=== PATIENT | female | born 1970 | race Caucasian/White ===

== ENCOUNTER 2021-01-25 10:34 | Outpatient (CLI) | payer OTHER, SELFPAY ==
--- NOTE | ~2021-01-25 | US_ITS ---
EXAMINATION: US soft tissue head and neck DATE: 01/25/2021 11:11 INDICATION: Right supraclavicular swelling TECHNIQUE: Multiple grayscale and Doppler ultrasound images were obtained of the right supraclavicula r region of concern and the contralateral left supraclavicular region for comparison. COMPARISON: None FINDINGS/IMPRESSION: No pathologically enlarged lymphadenopathy or other abnormal masses or fluid collections identified a t the right supraclavicular region of concern. Reviewed, dictated and finalized at location A.
== END 2021-01-25 10:35 | disposition home or self-care (01) ==
PROVIDERS: PCP Internal Medicine; Visit Provider Nurse Practitioner
DX: R22.2 Localized swelling, mass and lump, trunk (principal)
CPT/HCPCS: 76536

== ENCOUNTER 2021-03-26 11:43 | Emergency (ER) | payer OTHER, SELFPAY ==
[2021-03-26 12:50] VITALS: BP 131/58; PULSE 66; RESP 16; TEMP 36.3; O2SAT 100
[2021-03-26] MEDS: TETANUS,DIPHTHERIA,AC PERTUSSIS ADULT (0.5 ML) BOOSTRIX IM (13:18)
--- NOTE | 2021-03-26 13:43 | ED.WOUNDLAC ---
HPI - Wound/Laceration General Chief Complaint: Wound/Laceration Stated Complaint: laceration Time Seen by Provider: 03/26/21 13:35 Source: patient Mode of arrival: ambulatory Limitations: no limitations History of Present Illness HPI narrative: Ernestina Fischer is a 50 yo female with high blood pressure and depression comes to [facility] with a small laceration to the left thumb palmar side, distal joint Related Data Home Medications Medication Instructions Recorded Confirmed citalopram 40 mg PO DAILY 03/26/21 03/26/21 spironolactone 100 mg PO DAILY 03/26/21 03/26/21 Allergies Allergy/AdvReac Type Severity Reaction Status Date / Time No Known Allergies Allergy Unknown Verified 03/26/21 12:40 Review of Systems Review of Systems: Narrative: CONSTITUTIONAL: Denies fever, chills, sweats. EYES: Denies visual changes, redness, discharge. ENT: Denies rhinorrhea, congestion, sore throat, otalgia. CARDIOVASCULAR: Denies chest pain, palpitations, edema. RESPIRATORY: Denies dyspnea, wheezing, cough GASTROINTESTINAL: Denies abdominal pain, nausea, vomiting, diarrhea. GENITOURINARY: Denies dysuria, hematuria, abnormal discharge SKIN: Denies rash or itching. Severe laceration to left thumb palmar side at the distal joint NEUROLOGIC: Denies numbness, or focal weakness. PSYCHIATRIC: Denies anxiety or depression. PMFSH Past Medical History Medical History Depression Hypertension Social History Social History (Updated 03/26/21 @ 14:19 by Lucía Oakley CNP) Smoking status: Never smoker Alcohol intake: current Comments At time of signature, I agree with nursing past medical, surgical, social and family history. There is no relevant family history pertinent to the presenting complaint. Exam Narrative: Exam Narrative: GENERAL: This is a well-nourished, well-developed patient, in mild distress. HEAD: normocephalic, atraumatic. EYES: Sclera clear/white. Vision is grossly intact. EARS: External ears normal, a Hearing grossly intact. NOSE: External nose normal without nasal discharge, nares without redness, no rhinorrhea. THROAT: Mucous membranes moist, NECK: Neck supple CARDIOVASCULAR: Regular rate and rhythm without murmurs, gallops, or rubs. RESPIRATORY: Clear to auscultation. Breath sounds equal bilaterally. No wheezes, rales, or rhonchi. GASTROINTESTINAL: Abdomen soft, SKIN: warm, intact with centimeter laceration to the left thumb palmar side at the distal joint, controlled bleeding NEURO: awake, alert, and oriented to person, place and time. There were no obvious focal neurologic abnormalities. Steady gait EXTREMITIES: Normal range of motion. BACK: Nontender without deformity Course Course Emergency Course: 1 cm lack to left thumb on the palmar side 2 sutures placed Lack care explained tetanus shot given Vital Signs Vital signs: Vital Signs Temperature 97.4 F L 03/26/21 12:50 Pulse Rate 66 03/26/21 12:50 Respiratory Rate 16 03/26/21 12:50 Blood Pressure 131/58 L 03/26/21 12:50 Pulse Oximetry 100 03/26/21 12:50 Temperature 97.4 F L 03/26/21 12:50 Pulse Rate 66 03/26/21 12:50 Respiratory Rate 16 03/26/21 12:50 Blood Pressure 131/58 L 03/26/21 12:50 Pulse Oximetry 100 03/26/21 12:50 Procedures Laceration Laceration 1: Date: 03/26/21 Time: 13:47 Site: hand Side (If applicable): left Size (cm): 1 Description: linear and involves lid margin Depth: simple, single layer Local Anesthetic: lidocaine 1% Amount of anesthesia used (mL): 1 Pre-repair: irrigated ====== Skin Level ====== Skin layer closed with: vicryl Size (cm): 4-0 Number of sutures: 3 Technique: simple, interrupted ====== Subcutaneous Layer ====== ====== Muscle Layer ====== ====== Tendon Layer ====== MDM - Wound/Laceration Diffe
== END 2021-03-26 14:18 | disposition home or self-care (01) ==
PROVIDERS: Emergency Provider Nurse Practitioner; PCP Internal Medicine
DX: S61.012A Laceration without foreign body of left thumb without damage to nail, initial encounter (principal); X58.XXXA Exposure to other specified factors, initial encounter; F32.9 Major depressive disorder, single episode, unspecified; I10 Essential (primary) hypertension
CPT/HCPCS: 12001; 90471; 90715; 96372; 99212; G0463

== ENCOUNTER → 2022-01-24 09:39 | Outpatient (CLI) | payer OTHER, SELFPAY ==
--- NOTE | ~2022-01-24 | MR_ITS ---
EXAMINATION: MR ankle RT wo con DATE: 01/24/2022 10:16 INDICATION: Bone cyst of the right foot. Lateral right ankle pain. TECHNIQUE: Magnetic resonance imaging (MRI) of the right ankle was performed without intravenous cont rast. Sequences included sagittal, coronal, and axial proton-density weighted fast spin echo without and with fat saturation. COMPARISON: None. FINDINGS: Medial ankle ligaments: Deep and superficial deltoid ligaments as well as the spring ligament are normal. Lateral ankle ligaments: The anterior and posterior inferior tibiofibular ligaments are normal. The anterior talofibular, calc aneofibular and posterior talofibular ligaments are normal. Tendons: Achilles tendon is normal. Small amount of fluid signal extending along the peroneal tendon sheath co nsistent with mild tenosynovitis. The peroneus longus tendon is normal. Longitudinal split tear of th e peroneus brevis tendon at the level of the retromalleolar groove. The tibialis anterior and extenso r hallucis longus and extensor digitorum longus tendons are normal. The tibialis posterior, flexor di gitorum longus and flexor hallucis longus tendons are normal. Plantar fascia: Plantar aponeurosis is normal. Bones/other: Bone alignment is normal. Normal marrow signal throughout with no reactive edema, fracture or patholo gic marrow replacing process. Joint spaces are normal. Fluid: Physiologic amount fluid in the joint spaces. IMPRESSION: 1. Mild peroneal tenosynovitis with longitudinal split tear of the peroneus brevis tendon. Reviewed, dictated and finalized at location B. IMPRESSION: 1. Mild peroneal tenosynovitis with longitudinal split tear of the peroneus tonya vis tendon.
== END ==
PROVIDERS: PCP Internal Medicine; Visit Provider Podiatrist Foot & Ankle Surgery
DX: S86.311A Strain of muscle(s) and tendon(s) of peroneal muscle group at lower leg level, right leg, initial encounter (principal); M85.671 Other cyst of bone, right ankle and foot
CPT/HCPCS: 73721

== ENCOUNTER → 2022-01-24 09:42 | Outpatient (CLI) | payer OTHER, SELFPAY ==
--- NOTE | ~2022-01-24 | XR_ITS ---
EXAMINATION: XR lumbar spine 2-3V DATE: 01/24/2022 10:27 INDICATION: Low back pain. TECHNIQUE: 3 views of lumbar spine were obtained. COMPARISON: CT abdomen and pelvis 03/14/2009 FINDINGS: Bone alignment is normal. Vertebral body heights are normal. There is moderately decreased disc height at L5-S1 with endplate remodeling. There are endplate osteophytes at multiple levels. The re is mild facet joint osteoarthritis in lower lumbar spine. There is an intrauterine device in expec venita position. IMPRESSION: 1. Moderate degenerative disc disease at L5-S1. Reviewed, dictated and finalized at location A.
== END ==
PROVIDERS: PCP Internal Medicine; Visit Provider Internal Medicine
DX: M47.817 Spondylosis without myelopathy or radiculopathy, lumbosacral region (principal)
CPT/HCPCS: 72100

== ENCOUNTER 2024-04-27 15:16 | Outpatient (CLI) | payer BC, SELFPAY ==
--- NOTE | ~2024-04-27 | XR_ITS ---
XR hip LT min 2V 04/27/2024 15:45 Indication: Left hip pain Procedure: 2 views left hip Comparison: No prior studies for comparison. Findings: Moderate osteoarthritis of the left hip. No fracture or traumatic malalignment. There is an IUD present. Surrounding osseous structures and soft tissues are unremarkable. Impression: 1: Moderate osteoarthritis of the left hip. Reviewed, dictated and finalized at location B. Impression: 1: Moderate osteoarthritis of the left hip.
== END 2024-04-27 15:17 ==
PROVIDERS: PCP Internal Medicine; Visit Provider Internal Medicine
DX: M25.552 Pain in left hip (principal); M16.12 Unilateral primary osteoarthritis, left hip
CPT/HCPCS: 73502